=== PATIENT | female | born 1995 | race Hispanic/Latino ===

== ENCOUNTER 2023-01-09 13:38 | Emergency (ER) | payer OTHER ==
[~2023-01-09] VITALS: Ht 157.5 cm; Wt 58.2 kg
[2023-01-09] MEDS ORDERED: IBUPROFEN 600MG TAB PO ONE (22:20)
[2023-01-09] MEDS ORDERED: IBUP-1022 PO (22:21)
[2023-01-09 22:36] VITALS: BP 124/78
== END 2023-01-09 22:39 | disposition home or self-care (01) ==
LOC: M ED 13:38
DX: M71.22 Synovial cyst of popliteal space [Baker], left knee (principal)

== ENCOUNTER → 2025-10-27 | Outpatient (CLI) | payer OTHER ==
[~2025-10-27] MED LIST: IBUP600T42 PO; PRENTAB9 PO
[2025-10-27 13:05] LABS: GLUCOSE CHALLENGE TEST 1 HOUR 89 MG/DL (LESS THAN 140)
[2025-10-27 13:07] LABS: PLATELET COUNT, AUTOMATED 299 10^3/uL (150-450)
[2025-10-27 13:46] LABS: HIV 1&2 SCREEN NEGATIVE (NEGATIVE)
[2025-10-27 13:54] LABS: HEPATITIS C VIRUS ABY INDEX < 0.02 INDEX (<0.8)
[2025-10-27 14:16] LABS: Trichomonas vaginalis (AMP) NOT DETECTED (NEGATIVE)
[2025-10-27 14:39] LABS: GC DNA AMPLIFICATION NEGATIVE (NEGATIVE)
== END ==
LOC: MERGE 09:53 → M PLALAB 09:53
PROVIDERS: ATTEND Nurse Practitioner Family
DX: Z34.02 Encounter for supervision of normal first pregnancy, second trimester (principal)